=== PATIENT | female | born 1935 | race Caucasian/White ===

== ENCOUNTER 2016-11-29 13:41 | Emergency (ER) | payer MEDICARE, OTHER ==
[~2016-11-29] VITALS: Ht 154.9 cm; Wt 53.0 kg
[~2016-11-29 13:41] MED LIST: AMAN100T DT; CARB1TAB9 PO; ISOS30TA6 PO; LEVO75TA7 PO; TRAZ-129 PO; VALS80TA2 PO
[2016-11-29] MEDS ORDERED: TRAMADOL 50MG TABLET PO ONE (15:45)
[2016-11-29 16:06] VITALS: BP 146/87
== END 2016-11-29 16:54 | disposition home or self-care (01) ==
LOC: ER 16:32
DX: M25.512 Pain in left shoulder (principal); M25.511 Pain in right shoulder; G20 Parkinson's disease; I10 Essential (primary) hypertension; E05.90 Thyrotoxicosis, unspecified without thyrotoxic crisis or storm; Z91.81 History of falling
CPT/HCPCS: 73030; 99284